=== PATIENT | female | born 1970 | race Two or more races ===

== ENCOUNTER 2020-11-24 15:38 | Emergency (ER) | payer OTHER ==
[~2020-11-24] VITALS: Ht 154.9 cm; Wt 105.7 kg
--- NOTE | 2020-11-24 17:16 | NUR ---
PRIVACY ANALYST: PT TO ROOM FROM LOBBY
--- NOTE | 2020-11-24 17:22 | NUR ---
BREAK RN: THIS IS A 50 YEAR OLD FEMALE WHO WENT TO URGENT CARE DUE TO LABOY, PT WAS TOLD TO COME TO THE ED DUE TO HIGH BLOOD PRESSURE. PT HAS HX OF DM II. PT PLACED ON GROCERY SHOPPER, SINUS TACY AT 114, CONTINOUS SP02 AT 96% AND CYCLE VS.
--- NOTE | 2020-11-24 18:38 | NUR ---
AT BEDSIDE FOR ASSESSMENT.
[2020-11-24] MEDS ORDERED: SODIUM CHLORIDE FLUSH 10ML SYR IVF ONE (19:00)
[2020-11-24] MEDS ORDERED: SODIUM CHLORIDE 0.9% 1,000ML IVBOLUS ONE (19:00)
--- NOTE | 2020-11-24 19:00 | NUR ---
PIV PLACED, LABS DRAWN AND SENT WITH LAB STICKERS. IVF RUNNING. PT CONNECTED TO MONITORING. CALL LIGHT IN REACH. DAUGHTER AT BEDSIDE.
[2020-11-24 19:12] LABS: BASOPHILS % (AUTO) 0 % (0-1); EOSINOPHILS % (AUTO) 1 % (1-7); LYMPHOCYTES % (AUTO) 12 % (22-44); MEAN CORPUSCULAR HEMOGLOBIN 30.5 pg (27.0-34.8); MEAN CORPUSCULAR HGB CONC 33.6 g/dL (32.4-35.8); MEAN PLATELET VOLUME 9.3 fL (7.4-10.4); MONOCYTES % (AUTO) 4 % (2-9); NEUTROPHILS % (AUTO) 83 % (42-75); PLATELET COUNT 106 x10^3/uL (130-400); RED BLOOD COUNT 4.26 x10^6/uL (3.82-5.3); RED CELL DISTRIBUTION WIDTH 15.1 % (9.6-15.2)
[2020-11-24 19:13] LABS: MD NO
[2020-11-24 19:23] LABS: ALBUMIN 3.2 g/dL (3.4-5.0); ANION GAP 7 mmol/L (5-15); CALCIUM 8.7 mg/dL (8.5-10.1); CHLORIDE 106 mmol/L (98-107); CREATININE 0.55 mg/dL (0.55-1.02)
[2020-11-24 19:27] LABS: TROPONIN I < 0.015 ng/mL (0.000-0.045)
--- NOTE | 2020-11-24 19:37 | NUR ---
ALL RESULTS ARE BACK AT THIS TIME. CHART UP FOR RECHECK.
[2020-11-24] MEDS ORDERED: LABETALOL 5MG/ML, 20ML ONE (19:52)
[2020-11-24] MEDS ORDERED: LABETALOL 5MG/ML, 20ML IVPush ONE (20:00)
--- NOTE | 2020-11-24 20:09 | NUR ---
MEDS ADMIN PER OCT.
--- NOTE | 2020-11-24 20:25 | NUR ---
MD AT BEDSIDE TO UPDATE PT ON POC.
[2020-11-24] MEDS ORDERED: ACETAMINOPHEN 500 MG TABLET ONE (20:35)
[2020-11-24 20:38] VITALS: BP 164/79
[2020-11-24] MEDS ORDERED: ACETAMINOPHEN 325 MG TABLET PO ONE (21:00)
[2020-11-24] MEDS ORDERED: ACETAMINOPHEN 500 MG TABLET PO ONE (21:00)
== END 2020-11-24 20:50 | disposition home or self-care (01) ==
LOC: ED 19:30
DX: I10 Essential (primary) hypertension (principal); R51.9 Headache, unspecified; R42 Dizziness and giddiness; R00.0 Tachycardia, unspecified; R07.89 Other chest pain; R06.02 Shortness of breath; E11.9 Type 2 diabetes mellitus without complications
CPT/HCPCS: 36415; 71045; 80048; 82040; 84484; 85025; 93005; 96361; 96374; 99285; J7030

== ENCOUNTER 2020-12-14 15:26 | Emergency (ER) | payer OTHER ==
[~2020-12-14] VITALS: Ht 154.9 cm; Wt 106.4 kg
--- NOTE | 2020-12-14 16:48 | NUR ---
PT HAS CO ABDOMINAL PAIN W BLOATING NAUSEA NO VOMITTING. X2 WEEKS. ALSO RECIEVED J&J VACCINE. STATES SHE HAS BRUISING TO RIGHT LEG. DENIES PAIN OR SWELLING. HX OF BLOOD CLOTS
[2020-12-14 17:17] LABS: BASOPHILS % (AUTO) 0 % (0-1); EOSINOPHILS % (AUTO) 1 % (1-7); LYMPHOCYTES % (AUTO) 15 % (22-44); MEAN CORPUSCULAR HEMOGLOBIN 30.6 pg (27.0-34.8); MEAN CORPUSCULAR HGB CONC 33.6 g/dL (32.4-35.8); MEAN PLATELET VOLUME 10.3 fL (7.4-10.4); MONOCYTES % (AUTO) 5 % (2-9); NEUTROPHILS % (AUTO) 79 % (42-75); PLATELET COUNT 98 x10^3/uL (130-400); RED BLOOD COUNT 4.28 x10^6/uL (3.82-5.3); RED CELL DISTRIBUTION WIDTH 15.6 % (9.6-15.2)
[2020-12-14 17:19] LABS: MD NO
[2020-12-14 17:29] LABS: ALANINE AMINOTRANSFERASE 30 U/L (12-78); ALBUMIN 2.9 g/dL (3.4-5.0); ANION GAP 3 mmol/L (5-15); CALCIUM 8.9 mg/dL (8.5-10.1); CHLORIDE 107 mmol/L (98-107); CREATININE 0.58 mg/dL (0.55-1.02)
--- NOTE | 2020-12-14 17:30 | NUR ---
PT RESTING, CT COMPLETE. NO FURTHER NEEDS.
[2020-12-14 17:31] LABS: ALKALINE PHOSPHATASE 81 U/L (45-117); BILIRUBIN,TOTAL 1.8 mg/dL (0.2-1.0); TOTAL PROTEIN 6.9 g/dL (6.4-8.2)
[2020-12-14 18:23] VITALS: BP 148/82
--- NOTE | 2020-12-14 18:23 | NUR ---
Patient given discharge instructions and they have confirmed that they understand the instructions. Patient ambulatory with steady gait.
== END 2020-12-14 18:29 | disposition home or self-care (01) ==
LOC: ED 18:25
DX: I80.01 Phlebitis and thrombophlebitis of superficial vessels of right lower extremity (principal); R10.84 Generalized abdominal pain; R19.7 Diarrhea, unspecified; I10 Essential (primary) hypertension; E11.9 Type 2 diabetes mellitus without complications; Z90.49 Acquired absence of other specified parts of digestive tract; Z90.710 Acquired absence of both cervix and uterus
CPT/HCPCS: 36415; 80053; 85025; 99284

== ENCOUNTER 2021-02-08 13:41 | Emergency (ER) | payer OTHER ==
[~2021-02-08] VITALS: Ht 154.9 cm; Wt 94.0 kg
--- NOTE | 2021-02-08 13:57 | NUR ---
Report received from meal break RN and care assumed. Pt found sitting in room alert and awake. Awaiting orders from . Addendum: 02/08/21 at 1411 by DEMI This note was actually written by JAIME Guzman. I had signed signed on after Ash had finished logging off but somehow it shows as Ash as the person writing. Any note after [id number] is actually supposed to show as written by
--- NOTE | 2021-02-08 14:26 | NUR ---
Full biopsychologist completed. Pt is Uzbek speaking only. This RN able to speak Uzbek, therefore no translation services used. Pt's also at bedside and speak Pashto well for assistance. No edema to RLE, good distal CMS noted and pt states pain is 3-4/10 at this time in R groin area.
[2021-02-08] MEDS ORDERED: ALBUTEROL/IPRATROPIUM 2.5MG/0.5MG, 3 ML ONE (14:29)
[2021-02-08] MEDS ORDERED: ALBUTEROL/IPRATROPIUM 2.5MG/0.5MG, 3 ML NPPB ONE (14:30)
--- NOTE | 2021-02-08 14:34 | NUR ---
reliability technologist at bedside for draw and Duoneb NIPPB tx started at this time.
[2021-02-08 14:46] LABS: BASOPHILS % (AUTO) 0 % (0-1); EOSINOPHILS % (AUTO) 2 % (1-7); LYMPHOCYTES % (AUTO) 16 % (22-44); MEAN CORPUSCULAR HEMOGLOBIN 30.7 pg (27.0-34.8); MEAN CORPUSCULAR HGB CONC 34.2 g/dL (32.4-35.8); MONOCYTES % (AUTO) 4 % (2-9); NEUTROPHILS % (AUTO) 77 % (42-75); PLATELET COUNT 95 x10^3/uL (130-400); RED BLOOD COUNT 3.95 x10^6/uL (3.82-5.3); RED CELL DISTRIBUTION WIDTH 14.9 % (9.6-15.2)
--- NOTE | 2021-02-08 14:46 | NUR ---
Recheck of pt at this time with most of Duoneb completed. O2 turned off so that pt can use the restoom at this time.
--- NOTE | 2021-02-08 14:50 | NUR ---
Pt back to room and O2 turned back on for completion of Duoneb tx.
[2021-02-08 14:53] LABS: ALBUMIN 2.9 g/dL (3.4-5.0); ANION GAP 7 mmol/L (5-15); CALCIUM 8.7 mg/dL (8.5-10.1); CHLORIDE 108 mmol/L (98-107); CREATININE 1.14 mg/dL (0.55-1.02)
[2021-02-08 14:54] LABS: INTERNATIONAL NORMALIZED RATIO 1.1 (0.93-1.1); PROTHROMBIN TIME 11.7 Seconds (9.6-11.5)
--- NOTE | 2021-02-08 17:10 | NUR ---
Pt still up for MD recheck and awaiting discussion of findings and plan of care.
--- NOTE | 2021-02-08 17:19 | NUR ---
at bedside for recheck now.
[2021-02-08] MEDS ORDERED: APIXABAN 5 MG TABLET ONE (17:27)
[2021-02-08] MEDS ORDERED: RIVAROXABAN 15 MG TABLET PO ONE (17:30)
[2021-02-08] MEDS ORDERED: APIXABAN 5 MG TABLET PO ONE (17:30)
[2021-02-08] MEDS ORDERED: RIVAROXABAN 10 MG TABLET ONE (17:33)
[2021-02-08 18:00] VITALS: BP 155/65
== END 2021-02-08 18:02 | disposition home or self-care (01) ==
LOC: ED 14:11
DX: I82.819 Embolism and thrombosis of superficial veins of unspecified lower extremity (principal); R06.02 Shortness of breath; I10 Essential (primary) hypertension; E11.9 Type 2 diabetes mellitus without complications; Z90.89 Acquired absence of other organs; Z90.710 Acquired absence of both cervix and uterus
CPT/HCPCS: 36415; 80048; 82040; 85025; 85610; 85730; 94640; 99284

== ENCOUNTER 2021-04-30 21:09 | Emergency (ER) | payer OTHER ==
[~2021-04-30] VITALS: Ht 154.9 cm; Wt 92.8 kg
[2021-04-30] MEDS ORDERED: LISI-170 PO (21:38)
[2021-04-30 22:24] VITALS: BP 171/75
--- NOTE | 2021-04-30 22:26 | NUR ---
PT RESTING IN ROOM. VS STABLE. FAMILY AT BEDSIDE CALL LIGHT IN PLACE. NOSE IS NOT BLEEDING AT THIS TIME. WILL CONTINUE TO MONITOR.
--- NOTE | 2021-04-30 22:50 | NUR ---
NOSE IS NOT BLEEDING. KIKE GARNER AWARE OF VS, OKAYED FOR DISCHAGE. PT WILL TAKE HOME BP MEDICATION. PT HAS A RIDE FROM FAMILY. PT READY FOR DC.
== END 2021-04-30 22:59 | disposition home or self-care (01) ==
LOC: ED 21:29
DX: R04.0 Epistaxis (principal); R42 Dizziness and giddiness; R00.0 Tachycardia, unspecified; I10 Essential (primary) hypertension; E11.9 Type 2 diabetes mellitus without complications; Z90.49 Acquired absence of other specified parts of digestive tract; Z90.710 Acquired absence of both cervix and uterus
CPT/HCPCS: 93005; 99283